=== PATIENT | male | born 1960 | race Caucasian/White ===

== ENCOUNTER 2023-03-26 16:25 | Emergency (ER) | payer SELFPAY ==
[2023-03-26 16:35] VITALS: BP 166/76; PULSE 64; RESP 15; TEMP 36.7; O2SAT 99; BMI 26.6
--- NOTE | 2023-03-26 16:59 | XRR_ITS ---
PROCEDURE INFORMATION: Exam: XR Left Finger(s) Exam date and time: 03/26/2023 5:05 PM Age: 62 years old Clinical indication: Injury or trauma; Other: Laceration; Left; Index finger; Additional info: Trauma/amputation; Index TECHNIQUE: Imaging protocol: Radiologic exam of the left fingers. Views: Minimum 2 views. COMPARISON: No relevant prior studies available. FINDINGS: Bones/joints: There is a mildly diastatic avulsion off of the medial distal end of the middle phalanx of the index finger. Small bony fragments are seen along the lateral margin of the DIP joint probably arising from the lateral base of the distal phalanx. Soft tissues: There is soft tissue injury. XR/XR finger LT min 2V 16808 IMPRESSION: Fracture findings as described above.
--- NOTE | 2023-03-26 16:59 | W.ED.WOUNDLC ---
Documented by User: ANAYA Jimenez 03/27/23 07:07 HPI - Wound/Laceration General: Chief Complaint: Wound/Laceration Stated Complaint: finger lac on right hand Time Seen by Provider: 03/26/23 16:46 Source: patient Mode of arrival: ambulatory Limitations: no limitations History of Present Illness: Patient is a nice 62-year-old male who presents to ED today with a complaint of an injury to his right index finger that he sustained just prior to arrival after cutting it with a table saw. Last tetanus is unknown. Onset (ago): hour(s) Extremity Location: Left: hand (L index finger) Place: home Patient tetanus UTD: No Context: accidental Associated symptoms: Reports no associated symptoms PFSH ED PFSH: Medical History No pertinent family history Surgical History No pertinent past surgical history Course ED course: Patient was evaluated briefly as he was placed in vertical flow at the very end of my shift. Patient appears to have a partial amputation of the distal phalanx of his left index finger. Last tetanus is unknown. Tetanus has been ordered. I ordered him 1g of IM Ancef. XR order has been placed. Care will be transferred to Artur Vasquez PA-C. Vital Signs: Vital signs: Vital Signs Temperature 98.0 F 03/26/23 16:35 Pulse Rate 64 03/26/23 16:35 Respiratory Rate 15 03/26/23 16:35 Blood Pressure 166/76 03/26/23 16:35 Pulse Oximetry 99 03/26/23 16:35 Oxygen Delivery Me thod Room Air 03/26/23 16:35 MDM - Wound/Laceration Lab Data Radiology Impressions Finger X-Ray 03/26/23 16:59 IMPRESSION: Fracture findings as described above. Discharge Plan Discharge Patient Disposition: Home Clinical Impression: Fingertip amputation Qualifiers: Encounter type: initial encounter Qualified Code(s): S68.119A - Complete traumatic metacarpophalangeal amputation of unspecified finger, initial encounter Laceration of left index finger with tendon involvement Qualifiers: Encounter type: initial encounter Qualified Code(s): S61.211A - Laceration without foreign body of left index finger without damage to nail, initial encounter Condition: Stable Prescriptions: New cephalexin 500 mg capsule 500 mg PO Q6H 7 Days Qty: 28 0RF Discharge Orders: Discharge ED (Routine); Ordered 03/26/23 Ordered By: Artur Vasquez Discharge Diet: Regular Discharge Activity: Limit activity as instructed Patient Instructions: Finger Amputation (ED) Activity Restrictions/Additional Instructions: Leave dressing on until you see orthopedic hand specialist tomorrow. Dr. Pretty is the orthopedic hand specialist that will be seeing you. Please be out at [facility] before 10 AM tomorrow morning. Nothing by mouth after midnight tonight. Phone number [phone]. Address [address],?[address] [place],?[place]?[address]? Sign Out Sign Out Data: Patient Sign Out occurred on 03/26/23 at 17:28. Patient's care was discussed, and care was transferred from to ANAYA Wayne. Coding Level of Care Code ED Skid Man for Chg Fwd Documented by User: ANAYA Wayne 03/27/23 04:20 HPI - Wound/Laceration General: Chief Complaint: Wound/Laceration Stated Complaint: finger lac on right hand Time Seen by Provider: 03/26/23 16:46 History of Present Illness: Associated symptoms: Denies chills, fever(s), nausea or vomiting Review of Systems Const: Denies: fever(s), chills or fatigue Eyes: Denies: change in vision or eye discomfort ENMT: Denies: throat pain, odynophagia, nasal discharge or nasal congestion Card: Denies: chest pain, palpitations, edema, swelling of feet/ankles, dyspnea on exertion or orthopnea Resp: Denies: dyspnea, productive cough or non-productive cough GI: Denies: abdominal pain, nausea, vomiting, diarrhea, constipation or hematochezia : Denies: flank pain, difficulty urinating, dysuria or hematuria Musc: Reports: extremity pain (Left index finger-partial amputation); Denies: neck pain, back pain or extremity swelling Skin/Breast: Reports: new lesions (Laceration to left index finger); Denies: rash Neuro: Denies: headache(s), numbness in extremities or weakness in extremities PFSH ED PFSH: Medical History No pertinent family history Surgical History No pertinent past surgical history Physical Exam Const: COMMON NORMALS: patient oriented x3 HENMT: COMMON NORMALS: normocephalic HEAD & SCALP: normocephalic MOUTH: Normal oral and palatal mucosa present THROAT: posterior oropharynx normal and uvula midline Neck/C-Spine: COMMON NORMALS: supple GENERAL: Yes normal visual inspection Resp: COMMON NORMALS: normal respiratory effort, No retractions, No use of accessory muscles and clear to auscultation bilaterally AUSCULTATION: clear to auscultation bilaterally Cardio: COMMON NORMALS: regular rate, regular rhythm, S1 normal heart sound present, S2 normal heart sound present, No gallops present (Cardio), No clicks present (Cardio), No murmurs present (Cardio) and Peripheral pulses 2+ throughout RATE: regular rate RHYTHM: regular rhythm HEART SOUNDS: S1 normal heart sound present and S2 normal heart sound present PERIPHERAL PULSES: Peripheral pulses 2+ throughout GI: COMMON NORMALS: Normal to inspection, nondistended, normoactive bowel sounds present, Soft to palpation, non-tender and no masses PALPATION: Yes Soft to palpation : COMMON NORMALS: Yes no CVA tenderness BLADDER/KIDNEY EXAM: Yes no CVA tenderness Back/Pelvis: COMMON NORMALS: no CVA tenderness Extremity: NARRATIVE EXTREMITY EXAM: Patient has an irregular 3 cm laceration on the right proximal aspect of distal phalanx of second digit. Cap refill sluggish. Unable to flex DIP joint so likely tendon laceration involved. No nailbed or nail damage noted. Neuro: COMMON NORMALS: patient oriented x3 GAIT: Yes Normal gait present Skin: GENERAL SKIN EXAM: dry skin Procedures Laceration Laceration 1: Site: hand (Second digit) Side (If applicable): left Size (cm): 3.5 Description: irregular Depth: simple, single layer and involves tendon Local Anesthetic: lidocaine 2% (Lidocaine 2% used as digital block) Amount of anesthesia used (mL): 6 Pre-repair: irrigated extensively (With normal saline and Betadine) Skin layer closed with: nylon Size (cm): 3-0 Number of sutures: 4 Technique: simple, interrupted Nerve Block Nerve Block 1: Time out performed: Yes Local Anesthetic: lidocaine 2% Amount of anesthesia used (mL): 6 Side: left Nerve Blocks: digital (Second digit) Procedure Successful: Yes Patient Tolerated Procedure: well Complications: none Course Vital Signs: Vital signs: Vital Signs Temperature 98.0 F 03/26/23 16:35 Pulse Rate 64 03/26/23 16:35 Respiratory Rate 15 03/26/23 16:35 Blood Pressure 166/76 03/26/23 16:35 Pulse Oximetry 99 03/26/23 16:35 Oxygen Delivery Me thod Room Air 03/26/23 16:35 MDM - Wound/Laceration Medical Decision Making Patient is a 62-year-old male comes to the ED with a table saw injury to finger tip of left 2nd digit. Patient has an irregular 3.5 cm laceration on the right proximal aspect of distal phalanx. Cap refill sluggish. Unable to flex DIP joint so likely tendon laceration involved. No nailbed or nail damage noted.patient was given updated tetanus here in the ED and IM dose of Ancef. Lidocaine 2% was used as digital block and nurse irrigated finger and wound extensively with normal saline and Betadine. I then placed 4 sutures to lightly close laceration. I contacted Dr. Vasquez about patient case and he did not feel comfortable managing patient's care and thought patient needs to be referred to an orthopedic hand specialist. I spoke with Dr. Pretty the hand specialist at [facility] orth[facility] in [place]. He agreed to see patient tomorrow at 10 AM. He wanted me to have patient n.p.o. when he comes in tomorrow so he can take him to the OR. Patient's finger was wrapped in heavy padded Vaseline gauze and finger splint. He was sent home with information on how to get in contact with [facility] orth[facility] in [place] and he said he will be there at their office before 10:00 tomorrow morning. He was also sent home with a prescription for Keflex. Patient understood and agreed with plan Lab Data Radiology Impressions Finger X-Ray 03/26/23 16:59 IMPRESSION: Fracture findings as described above. Discharge Plan Discharge Patient Disposition: Home Clinical Impression: Fingertip amputation Qualifiers: Encounter type: initial encounter Qualified Code(s): S68.119A - Complete traumatic metacarpophalangeal amputation of unspecified finger, initial encounter Laceration of left index finger with tendon involvement Qualifiers: Encounter type: initial encounter Qualified Code(s): S61.211A - Laceration without foreign body of left index finger without damage to nail, initial encounter Condition: Stable Prescriptions: New cephalexin 500 mg capsule 500 mg PO Q6H 7 Days Qty: 28 0RF Discharge Orders: Discharge ED (Routine); Ordered 03/26/23 Ordered By: Artur Vasquez Discharge Diet: Regular Discharge Activity: Limit activity as instructed Patient Instructions: Finger Amputation (ED) Activity Restrictions/Additional Instructions: Leave dressing on until you see orthopedic hand specialist tomorrow. Dr. Pretty is the orthopedic hand specialist that will be seeing you. Please be out at [facility] before 10 AM tomorrow morning. Nothing by mouth after midnight tonight. Phone number [phone]. Address [address] [place] [address],?[address] [place],?[place]?[address]? Sign Out Sign Out Data: Patient Sign Out occurred on 03/26/23 at 17:28. Patient's care was discussed, and care was transferred from to ANAYA Wayne. Coding Level of Care Code ED Skid Man for Aslhey Sherwood
[2023-03-26] MEDS: tetanus-dipt-pertussis 0.5 mL SDV IM (17:55)
[2023-03-26] MEDS: ceFAZolin 1,000 MG in water for injection-sterile 2.5 ML 2.5 MG IM (17:56)
[2023-03-26] MEDS: HYDROcodone-acetaminophen 7.5-325 mg Tablet 2 TAB PO (19:30)
== END 2023-03-26 19:33 | disposition home or self-care (01) ==
PROVIDERS: Emergency Provider Physician Assistant
DX: S68.111A Complete traumatic metacarpophalangeal amputation of left index finger, initial encounter (principal); W27.0XXA Contact with workbench tool, initial encounter; Z23 Encounter for immunization
CPT/HCPCS: 12002; 73140; 90471; 90715; 96372; 99284; J0690